=== PATIENT | male | born 1935 | race Caucasian/White ===

== ENCOUNTER 2016-08-11 14:09 | Emergency (ER) | payer MEDICARE, BC ==
[2016-08-11 14:49] VITALS: RESP 18
--- NOTE | 2016-08-11 15:40 | ED ---
Fall HPI - General Chief Complaint: Fall Stated Complaint: Fall/Arm Pain Time Seen by Provider: 08/11/16 15:01 Source: patient, RN notes reviewed Mode of arrival: wheelchair Limitations: no limitations - History of Present Illness Initial Comments: This is an 81-year-old male presents emergency Department chief complaint fall. Patient states that he went to open the door for his and states that the wind caught him throwing him into a planter. Patient states that he has an abrasion to his right hand, elbow regions, left hip region. Patient states he has left hip pain, right wrist pain. Patient denies any head injury, LOC. Patient states does not take any blood thinners. Patient states he was able to a blade states that he does have increased pain with to his left hip. Patient states it did not lose conscious. Patient offers no other complaints. - Related Data Home Medications Medication Instructions Recorded Confirmed Aspirin 325 mg PO HS 08/11/16 08/11/16 Metoprolol Tartrate [Lopressor] 25 mg PO HS 08/11/16 08/11/16 Simvastatin [Zocor] 40 mg PO HS 08/11/16 08/11/16 Allergies Allergy/AdvReac Type Severity Reaction Status Date / Time No Known Allergies Allergy Unverified 08/11/16 15:51 Review of Systems ROS Statement: Those systems with pertinent positive or pertinent negative responses have been documented in the HPI. ROS Other: All systems not noted in ROS Statement are negative. Past Medical History Past Medical History: Coronary Artery Disease (CAD), Hyperlipidemia, Hypertension Past Surgical History: Heart Catheterization With Stent Additional Past Surgical History / Comment(s): eye surg/cataract Smoking Status: Former smoker Past Alcohol Use History: None Reported Past Drug Use History: None Reported General Exam Limitations: no limitations General appearance: alert, in no apparent distress Head exam: Present: atraumatic, normocephalic, normal inspection ENT exam: Present: mucous membranes moist Neck exam: Present: normal inspection, full ROM. Absent: tenderness, meningismus, lymphadenopathy Respiratory exam: Present: normal lung sounds bilaterally. Absent: respiratory distress, wheezes, rales, rhonchi, stridor Cardiovascular Exam: Present: regular rate, normal rhythm, normal heart sounds. Absent: systolic murmur, diastolic murmur, rubs, gallop, clicks Extremities exam: Present: other (Left hip there is a small abrasion noted with mild tenderness patient does have some pain with range of motion no he has complaint range of motion. There is small abrasion noted to the right hand, bilateral elbows, patient does have mild tenderness the right wrist patient has full range of motion of the remaining extremities.) Back exam: Present: full ROM. Absent: tenderness, paraspinal tenderness, vertebral tenderness Neurological exam: Present: alert, oriented X3, CN II-XII intact Skin exam: Present: warm, dry, intact, normal color. Absent: rash Course Vital Signs 08/11/16 08/11/16 14:44 16:02 Temperature 97.9 F 97.9 F Pulse Rate 104 H 96 Respiratory 18 18 Rate Blood Pressure 170/76 154/80 O2 Sat by Pulse 98 98 Oximetry Procedures - Orthopedic Splinting/Casting Injury #1 Side: right Upper Extremity Injury Location: wrist Upper Extremity Immobilizer: wrist splint (Short leg neurovascular intact before and after procedure) Medical Decision Making - Medical Decision Making 81-year-old male present emergency department for fall. Patient has a right wrist fracture, left acetabular fracture. Case is discussed with Yoan Choi who accepts transfer Disposition Clinical Impression: Fall, Right wrist fracture, Left acetabular fracture, Multiple abrasions Disposition: OTHER INSTITUTION NOT DEFINED Condition: Stable Referrals: Ashley Villalba MD [Primary Care Provider] - 1-2 days Time of Disposition: 16:11 - Out of Hospital Transfer - Req. Specs Out of Hospital Transfer - Requested Specifics: Other Emergency Center ( [facility])
--- NOTE | 2016-08-11 15:52 | XR ---
EXAMINATION TYPE: XR wrist complete RT DATE OF EXAM: 08/11/2016 3:48 PM COMPARISON: NONE HISTORY: Pain TECHNIQUE: 4 view right wrist FINDINGS: Nondisplaced fracture of the distal radius may be present. Nondisplaced fracture of the met adiaphyseal ulna is present. Degenerative changes are through the first carpal metacarpal junction. Mild soft tissue swelling is p resent. IMPRESSION: 1. Fracture of the radial aspect of the distal radius with extension to the articular surface. 2. Longitudinal fracture distal ulna. 3. Soft tissue swelling
--- NOTE | 2016-08-11 15:54 | XR ---
EXAMINATION TYPE: XR Hip LT and AP Pelvis DATE OF EXAM: 08/11/2016 3:47 PM COMPARISON: NONE HISTORY: Pain, fall TECHNIQUE: 2 views left hip supplemented with an AP pelvis FINDINGS: Acetabular protrusio is present. Fracture of the medial acetabulum is present. The femur ap pears intact. IMPRESSION: 1. Fracture of the medial left acetabulum.
[2016-08-11 17:29] VITALS: BP 144/72; PULSE 70; TEMP 98.1
[2016-08-11] MEDS ORDERED: MORPHINE SULFATE 4 MG/ML SYRINGE IVP STA (17:31)
[2016-08-11] MEDS ORDERED: ONDANSETRON 4 MG/2 ML VIAL IVP STA (17:35)
== END 2016-08-11 18:07 | disposition other institution (70) ==
LOC: EC 14:09
DX: S52.571A Other intraarticular fracture of lower end of right radius, initial encounter for closed fracture (principal); S32.402A Unspecified fracture of left acetabulum, initial encounter for closed fracture; I10 Essential (primary) hypertension; I25.10 Atherosclerotic heart disease of native coronary artery without angina pectoris; E78.5 Hyperlipidemia, unspecified; W19.XXXA Unspecified fall, initial encounter; Z87.891 Personal history of nicotine dependence; Z95.5 Presence of coronary angioplasty implant and graft; Z79.82 Long term (current) use of aspirin
CPT/HCPCS: 99284; 96374; 96375; 29125; 73110; 73502; J2270; J2405